=== PATIENT | female | born 1965 | race Caucasian/White ===

== ENCOUNTER 2016-10-11 06:39 | Day surgery (SDC) | payer OTHER ==
[~2016-10-11] VITALS: Ht 157.5 cm; Wt 76.0 kg
[~2016-10-11 06:39] MED LIST: ASPIR 8181 M1 PO; COLACE100 MG PO; DESYREL100 MG PO; ENDOCET 5-3251 EACH PO; EXCEDRIN MIGRA1 EAC3 PO; FLEXERIL10 MG PO; MOTRIN800 MG PO; NAPROSYN500 MG PO; OXYCONTIN10 MG PO; PROMETHAZINE HC25 M1 PO; VITAMIN D32000 UNI1 PO; ZESTRIL20 MG PO; Zestoretic,Prinzide PO; ~No Medications
[2016-10-11 06:54] VITALS: BP 138/80
[2016-10-11] MEDS ORDERED: NORCO 5/3251 TABLET PO (10:20)
[2016-10-11 11:35] VITALS: BP 137/76
[2016-10-11 12:22] VITALS: BP 140/86
== END 2016-10-11 12:32 | disposition home or self-care (01) ==
LOC: SDC 06:39
PROC: 0WUF0JZ Supplement Abdominal Wall with Synthetic Substitute, Open Approach (ICD-10-PCS; principal; 2016-10-11)
DX: K42.9 Umbilical hernia without obstruction or gangrene (principal); I10 Essential (primary) hypertension; Z79.82 Long term (current) use of aspirin
CPT/HCPCS: 93005; C1781; J0131; J0690; J2250; J3010; S0020